=== PATIENT | female | born 1965 | race Caucasian/White ===

== ENCOUNTER → 2016-05-03 | Outpatient (CLI) | payer OTHER ==
[~2016-05-03] VITALS: Ht 161 cm; Wt 73.9 kg
[~2016-05-03] MED LIST: BUPROPION XL150 MG PO; CALTRATE 6001 TABLE1 PO; CITALOPRAM HBR40 MG PO; CYANOCOBALAM1000 MCG PO; Caltrate 600/400 PO; DAILY VITAMIN1 EAC8 PO; LEXAPRO20 MG PO; NAPROXEN500 MG PO; PERCOCET 5/31 TABLET PO; PRILOSEC40 MG PO; Theragran PO; Vicodin,Norco 5/325 PO; celeBREX PO; celeXA PO
== END | disposition home or self-care (01) ==
LOC: AMB 11:38
PROC: 0DJ08ZZ Inspection of Upper Intestinal Tract, Via Natural or Artificial Opening Endoscopic (ICD-10-PCS; principal; 2016-05-03)
DX: R10.9 Unspecified abdominal pain (principal); Z98.84 Bariatric surgery status; K21.9 Gastro-esophageal reflux disease without esophagitis
CPT/HCPCS: B4087; J2250; J3010